=== PATIENT | female | born 1995 | race Caucasian/White ===

== ENCOUNTER 2017-01-27 18:15 | Emergency (ER) | payer OTHER ==
[~2017-01-27] VITALS: Ht 167.6 cm; Wt 61.0 kg
[2017-01-27] MEDS ORDERED: IBUPROFEN 600MG TABLET PO ONE (19:30)
[2017-01-27 20:32] VITALS: BP 127/85
== END 2017-01-28 09:46 | disposition home or self-care (01) ==
LOC: ER 18:15
DX: S20.219A Contusion of unspecified front wall of thorax, initial encounter (principal); M25.561 Pain in right knee; V49.59XA Passenger injured in collision with other motor vehicles in traffic accident, initial encounter; Y93.89 Activity, other specified; Y92.410 Unspecified street and highway as the place of occurrence of the external cause; R03.0 Elevated blood-pressure reading, without diagnosis of hypertension
CPT/HCPCS: 71010; 93005; 99284

== ENCOUNTER 2019-07-19 21:20 | Emergency (ER) | payer SELFPAY ==
[~2019-07-19] VITALS: Ht 160 cm; Wt 64.0 kg
[2019-07-19] MEDS ORDERED: ONDANSETRON 4MG ODT PO ONE (22:00)
[2019-07-19] MEDS ORDERED: METOCLOPRAMIDE HCL 10MG/2ML VIAL IM ONE (22:00)
[2019-07-20 00:05] LABS: BASOPHILS % 0.2 % (0.0-2.0); CHLORIDE 103 mEq/L (98-107); HEMATOCRIT. 44.8 % (36.0-48.0); HEMOGLOBIN. 15.5 g/dL (12.0-16.0); MEAN CORPUSCULAR VOLUME 92.6 fL (81.0-99.0); MONOCYTES % 3.7 % (2.0-8.0); NEUTROPHILS % 85.1 % (40.0-76.0); PLATELET 223 x1000/uL (130-400); RED BLOOD CELL COUNT 4.84 mill/uL (4.2-5.4); RED CELL DISTRIBUTION WIDTH 14.4 % (11.6-14.6)
[2019-07-20 00:06] LABS: CLARITY URINE CLOUDY (CLEAR); COLOR URINE DARK YELLOW (YELLOW); KETONES URINE 4+ (NEGATIVE); LEUKOCYTE ESTERASE URINE NEGATIVE (NEGATIVE); NITRITE URINE NEGATIVE (NEGATIVE); OCCULT BLOOD URINE NEGATIVE (NEGATIVE); PH URINE 5.5 (4.5-8.0); PROTEIN URINE 1+ (NEGATIVE); SPECIFIC GRAVITY URINE 1.027 (1.005-1.030)
[2019-07-20 00:31] LABS: B-HCG QUANTITATIVE 51433 mIU/mL (<3)
[2019-07-20] MEDS ORDERED: SODIUM CHLORIDE 0.9% 1,000 ML IV ONE (00:45)
[2019-07-20] MEDS ORDERED: CEFTRIAXONE 1 G PREMIX 50 ML IV ONE (00:45)
[2019-07-20 02:20] VITALS: BP 106/75
== END 2019-07-20 03:56 | disposition home or self-care (01) ==
LOC: ER 21:20
DX: N39.0 Urinary tract infection, site not specified (principal); F17.290 Nicotine dependence, other tobacco product, uncomplicated
CPT/HCPCS: 36415; 76801; 76817; 80053; 81003; 81025; 84702; 85025; 96372; 96374; 99284; 99406; J0696; J2765; J7030; Q0162